=== PATIENT | male | born 1940 | race Caucasian/White ===

== ENCOUNTER 2019-01-08 12:50 | Inpatient (IN) | payer MEDICARE, MEDICAID ==
[~2019-01-08] VITALS: Ht 182.9 cm; Wt 79.4 kg
[2019-01-08 13:48] LABS: BASOPHILS % (AUTO) 0.2 % (0-1); EOSINOPHILS % (AUTO) 0.7 % (0-6); HEMATOCRIT 42.1 % (42.0-52.0); HEMOGLOBIN 13.7 g/dl (14.0-17.9); LYMPHOCYTES # (AUTO) 0.7 X10'3 (1.1-4.8); LYMPHOCYTES % (AUTO) 15.3 % (21-51); MEAN CORPUSCULAR HEMOGLOBIN 27.4 PG (27.0-31.0); MEAN CORPUSCULAR HGB CONC 32.5 g/dL (33.0-36.5); MEAN PLATELET VOLUME 9.5 FL (7.4-10.4); MONOCYTES # (AUTO) 0.3 X10'3 (0-0.9); MONOCYTES % (AUTO) 5.4 % (2-12); NEUTROPHILS # (AUTO) 3.8 X10'3 (1.8-7.7); NEUTROPHILS % (AUTO) 78.4 % (42-75); PLATELET COUNT 88 X10'3 (140-440); RED BLOOD COUNT 5.01 X10'6 (4.70-6.10); RED CELL DISTRIBUTION WIDTH 15.7 % (11.5-14.5); WHITE BLOOD COUNT 4.8 X10'3 (4.5-11.0)
[2019-01-08 13:58] LABS: ALANINE AMINOTRANSFERASE 53 U/L (12-78); ALBUMIN 3.3 G/DL (3.4-5.0); ALBUMIN/GLOBULIN RATIO 0.9 (1.1-1.5); ALKALINE PHOSPHATASE 79 IU/L (46-116); ANION GAP 5 (8-16); ASPARTATE AMINO TRANSFERASE 66 U/L (10-37); BILIRUBIN,TOTAL 0.6 MG/DL (0.1-1.0); BLOOD UREA NITROGEN 19 MG/DL (7-18); BUN/CREATININE RATIO 14.7 (5.4-32.0); CALCIUM 8.5 MG/DL (8.5-10.1); CHLORIDE 108 MMOL/L (99-107); CREATININE 1.29 MG/DL (0.60-1.10); GLUCOSE 103 MG/DL (70-104); POTASSIUM 5.2 MMOL/L (3.5-5.1); SODIUM 142 MMOL/L (135-145); TOTAL CARBON DIOXIDE 29.3 MMOL/L (24-32); TOTAL PROTEIN 7.1 G/DL (6.4-8.2); eGFR 54 ML/MIN
[2019-01-08 14:15] LABS: PARTIAL THROMBOPLASTIN TIME 115 SECONDS (22-32)
--- NOTE | 2019-01-08 14:15 | NUR ---
PTT RESULT IS 115. HEPARIN DRIP TURNED OFF PER PROTOCOL AND IS TO REMAIN OFF FOR [address] NAIR AND JIMY AWARE OF THIS.
[2019-01-08] MEDS ORDERED: ondansetron/PF 4mg/2ml inj IV PRN (14:20)
[2019-01-08] MEDS ORDERED: morphine 2 MG/ML inj. syringe IV PRN ×2 (14:20)
[2019-01-08] MEDS ORDERED: magnesium hydroxide 30ml (MOM) UD suspension PO PRN ×2 (14:20→18:50)
[2019-01-08] MEDS ORDERED: nitroGLYCERIN 0.4mg SUBLingual tab SL PRN (14:20)
[2019-01-08] MEDS ORDERED: heparin 10,000 units/1 ML INJ IV PRN (14:20)
[2019-01-08] MEDS ORDERED: acetaminophen 325mg tablet PO PRN ×2 (14:20→18:50)
[2019-01-08] MEDS ORDERED: mag hydrox/Alum hydrox/simeth 30ml oral suspension PO PRN (14:20)
[2019-01-08] MEDS ORDERED: heparin 10,000 units/1 ML INJ IV ONE ×2 (14:20→14:30)
[2019-01-08] MEDS ORDERED: FLO0.4C PO (15:07)
[2019-01-08] MEDS ORDERED: ALBU8.5H8 INH (15:07)
[2019-01-08] MEDS ORDERED: metoprolol tartrate 50mg tablet PO STA (15:26)
[2019-01-08 15:45] VITALS: BP 183/92
--- NOTE | 2019-01-08 15:58 | NUR ---
Pt. arrived from ER. Pt. does not have chest pain at the moment. Pt's skin clear. Pt. does not have any complaints at this time. Pt. placed on engine monitor and vitals take. Will prep for heart cath.
--- NOTE | 2019-01-08 16:04 | NUR ---
PAGER ID: [phone] MESSAGE: [phone]-Son. FYI. Trop up to 18.. Thank You Denton WOLFF [phone]
[2019-01-08] MEDS: heparin 25,000 UNIT/250ml bag 250 ML IV SCH (16:23)
[2019-01-08] MEDS: furosemide 20 MG/2 ML vial IV SCH ×2 (16:25→20:50)
[2019-01-08] MEDS ORDERED: iohexol 350 MG/ML 50ML vial IV ONE (16:31)
[2019-01-08] MEDS ORDERED: heparin 1,000unit/ml 10ml vial 10 ML ONE (16:31)
[2019-01-08] MEDS ORDERED: fentaNYL/PF 50MCG/1 ML 2ML syringe ONE (16:31)
[2019-01-08] MEDS ORDERED: nitroGLYCERIN-Tridil 50MG/D5W 250 ML IV ONE (16:31)
[2019-01-08] MEDS ORDERED: iohexol 350 MG/1 ML 200ml bottle ONE (16:31)
[2019-01-08] MEDS ORDERED: LIDOcaine 1% (10mg/ml)w/preservative injection 20ml MDV ONE (16:31)
[2019-01-08] MEDS ORDERED: midazolam 2 mg/2 ml injection ONE (16:31)
--- NOTE | 2019-01-08 16:45 | NUR ---
Pt. headed to the cath lab radiological technologist
[2019-01-08] MEDS ORDERED: tirofiban 12.5mg in NS 250mL 250 ML IV ONE (18:03)
--- NOTE | 2019-01-08 18:12 | NUR ---
Problems reprioritized. Patient report given, questions answered & plan of care reviewed with Gregory WOLFF and Afia WOLFF.
--- NOTE | 2019-01-08 18:40 | NUR ---
received report from Denton in the asset availability leader patient is in bed 2008 cicu no questions or concerns after sbar from Denton
[2019-01-08] MEDS ORDERED: clopidogrel 300mg tablet PO ONE (18:50)
[2019-01-08] MEDS ORDERED: normal saline 1000ml 1,000 ML IV ONE (18:50)
[2019-01-08] MEDS ORDERED: aspirin 81mg tab.chew PO ONE (18:50)
[2019-01-08 19:00] VITALS: BP 240/124
--- NOTE | 2019-01-08 19:12 | NUR ---
called and left message for dr. driver at phone # [phone] regarding patients b/p
--- NOTE | 2019-01-08 19:14 | NUR ---
called labeling associate to try and reach dr. dow as well
[2019-01-08] MEDS: tirofiban 12.5mg in NS 250mL 250 ML IV SCH (19:26)
[2019-01-08] MEDS ORDERED: nitroGLYCERIN-Tridil 50MG/D5W 250 ML IV PRN (19:28)
[2019-01-08] MEDS: hydrALAZINE 20mg/ml inj. IV PRN (19:58)
[2019-01-08 20:00] VITALS: BP 227/113
[2019-01-08] MEDS ORDERED: metoprolol tartrate 12.5mg (1/2 tablet) PO SCH (20:00)
--- NOTE | 2019-01-08 20:30 | NUR ---
unable to get a piv for nitro will attempt again
[2019-01-08] MEDS: docusate sod 100mg capsule PO SCH (20:50)
[2019-01-08 21:00] VITALS: BP 182/90
--- NOTE | 2019-01-08 21:37 | NUR ---
unable to get iv on 3 rd attempt have uriel CN with us to attempt for nitro to decrease b/p
[2019-01-08 22:00] VITALS: BP 173/91
[2019-01-08 23:00] VITALS: BP 167/88
--- NOTE | 2019-01-08 23:00 | NUR ---
patient in bed eyes closed supine right leg straight rr even un labored no observable s/s of acute stress at this time
[2019-01-09] VITALS (22 sets, daily range): BP systolic 97–157; BP diastolic 58–88
--- NOTE | 2019-01-09 00:53 | NUR ---
patient re positioned denies pain, rr even un labored no observable s/s of acute stress at this time
[2019-01-09] MEDS: hydrALAZINE 20mg/ml inj. IV PRN (02:09)
--- NOTE | 2019-01-09 03:30 | NUR ---
Patient refused 0200 vitals. We were able to obtain vitals at 0330 after patient got back into bed from using the commode. Patient had 2 BM in the span of approx 45 minutes. He was also nauseated, diaphoretic and unsteady on his feet. It took 2 to 3 staff members to get him back in bed. He now reports that he is feeling better and wishes to sleep. He appears to be back at his baseline. He has been disoriented and confused during the last 5 hours of this shift. He is able to be reoriented during those times but it takes a few minutes for that to happen. His body temperature at this time is cool and he complains of being cold. Took a few times of repeating his temp to get a temp of 96.1 axillary. Began to perform warming measures and will repeat patient temperature within 1 hour. Will continue to monitor this patient for duration of shift.
--- NOTE | 2019-01-09 04:06 | NUR ---
patient in bed eyes closed rr even un labored no observable s/s of acute stress at this time
[2019-01-09 04:39] LABS: BASOPHILS % (AUTO) 0.2 % (0-1); EOSINOPHILS % (AUTO) 0 % (0-6); HEMOGLOBIN 13.7 g/dl (14.0-17.9); LYMPHOCYTES # (AUTO) 0.6 X10'3 (1.1-4.8); LYMPHOCYTES % (AUTO) 6.4 % (21-51); MEAN CORPUSCULAR HEMOGLOBIN 27.4 PG (27.0-31.0); MEAN CORPUSCULAR HGB CONC 32.7 g/dL (33.0-36.5); MEAN CORPUSCULAR VOLUME 83.8 FL (78-98); MONOCYTES # (AUTO) 0.4 X10'3 (0-0.9); MONOCYTES % (AUTO) 4.4 % (2-12); NEUTROPHILS # (AUTO) 7.6 X10'3 (1.8-7.7); PLATELET COUNT 122 X10'3 (140-440); RED BLOOD COUNT 5.01 X10'6 (4.70-6.10); RED CELL DISTRIBUTION WIDTH 15.7 % (11.5-14.5); WHITE BLOOD COUNT 8.6 X10'3 (4.5-11.0)
[2019-01-09] MEDS: heparin 25,000 UNIT/250ml bag 250 ML IV SCH (04:55)
[2019-01-09 04:56] LABS: ALANINE AMINOTRANSFERASE 54 U/L (12-78); ALBUMIN 3.2 G/DL (3.4-5.0); ALBUMIN/GLOBULIN RATIO 0.9 (1.1-1.5); ALKALINE PHOSPHATASE 81 IU/L (46-116); ANION GAP 10 (8-16); ASPARTATE AMINO TRANSFERASE 55 U/L (10-37); BILIRUBIN,TOTAL 0.9 MG/DL (0.1-1.0); BLOOD UREA NITROGEN 26 MG/DL (7-18); BUN/CREATININE RATIO 20.8 (5.4-32.0); CALCIUM 8.2 MG/DL (8.5-10.1); CHLORIDE 104 MMOL/L (99-107); CHOL/HDL RATIO 2.4 (0.00-4.99); CHOLESTEROL 109 MG/DL (0-200); CREATININE 1.25 MG/DL (0.60-1.10); GLUCOSE 158 MG/DL (70-104); HDL CHOLESTEROL 45 MG/DL (35-60); LDL CHOLESTEROL 58 MG/DL (50-100); POTASSIUM 4.5 MMOL/L (3.5-5.1); SODIUM 140 MMOL/L (135-145); TOTAL CARBON DIOXIDE 25.9 MMOL/L (24-32); TOTAL PROTEIN 6.9 G/DL (6.4-8.2); TRIGLYCERIDES 38 MG/DL (20-135); eGFR 56 ML/MIN
[2019-01-09 04:58] LABS: TROPONIN I 7.45 NG/ML (0.0-0.05)
--- NOTE | 2019-01-09 05:12 | NUR ---
patient in bed eyes closed rr even un labored no observable s/s of acute stress at this time
--- NOTE | 2019-01-09 06:16 | NUR ---
Patient in room CICU 2008. I have received report from Chencho and had the opportunity to ask questions and assume patient care.
--- NOTE | 2019-01-09 06:23 | NUR ---
SBAR to Kristie WOLFF no questions or concerns after SBAR
[2019-01-09] MEDS ORDERED: metoprolol succinate 25mg (24-HOUR) SR. Tablet PO SCH (08:00)
[2019-01-09] MEDS ORDERED: aspirin 81mg tablet.DR PO SCH (08:00)
[2019-01-09] MEDS ORDERED: aspirin 325mg tablet PO SCH (08:30)
[2019-01-09] MEDS: furosemide 20 MG/2 ML vial IV SCH ×2 (08:52→20:27)
[2019-01-09] MEDS: atorvastatin 20mg tablet PO SCH (08:52)
[2019-01-09] MEDS: docusate sod 100mg capsule PO SCH ×2 (08:52→20:28)
[2019-01-09] MEDS: clopidogrel 75mg tablet PO SCH (08:53)
[2019-01-09] MEDS: metoprolol succinate 25mg (24-HOUR) SR. Tablet PO SCH ×2 (08:53→20:28)
[2019-01-09] MEDS ORDERED: albuterol 2.5 MG/3 ML nebule NEB PRN (11:25)
--- NOTE | 2019-01-09 12:08 | NUR ---
0700- heparin off 0730ACT 145 0930- Art sheath site oozing, no hematoma present, tolerating laying flat. Pulses located with doppler, sheath pulled, bleeding controlled at site 0935 hematoma forming at right groin, reinforcements at bedside to place added manual pressure. Still no bleeding from insertion site, Pulses present using doppler 0950 - final measurement of hematoma is 11cmx 11cm, Call placed to Dr Fowler notifying him of hematoma, no new orders received, aggrastat continues to infuse at 6.75 hr. 1000Fen stop placed, no bleeding present.
--- NOTE | 2019-01-09 14:27 | NUR ---
1430- hematoma remains unchanged, pulses in feet palpable. Call to Dr Fowler, d/c destiny when current bag infused.
--- NOTE | 2019-01-09 15:05 | NUR ---
Consult received for cardiac diet education. Patient has normal lipid labs. Noted patient admission with uncontrolled high blood pressure, per MD note medications will be adjusted. Patient on heart healthy diet. Will provide diet education prior to discharge. Addendum: 01/09/19 at [address] Amended: Links added.
--- NOTE | 2019-01-09 16:46 | NUR ---
1644- Dr Fowler rounded- He repositioned femostop to below insertion site directly over hematoma, keep femostop in place for 2 more hours, give 25mg metoprolol now and then order for BID.
[2019-01-09] MEDS ORDERED: metoprolol tartrate 25mg tablet PO STA (16:48)
--- NOTE | 2019-01-09 18:26 | NUR ---
Problems reprioritized. Patient report given, questions answered & plan of care reviewed with Mariluz.
--- NOTE | 2019-01-09 18:40 | NUR ---
RECEIVED PATIENT. PATIENT IS GETTING PREPARED TO TRANSFER TO THE [facility] ROOM 308. PATIENT IS NEUROLOGICALLY INTACT. NO NUMBNESS OR TINGLING. MOVES X 4 EQUALLY, ORIENTED X4. VERY PLEASANT. PATIENT IS ON ROOM AIR, NO RESPIRATORY DISTRESS. LUNGS ARE CLEAR. AFIB 90-105. NO ECTOPY NOTED. VSS. FEM STOP TO RIGHT GROIN. PER REPORT - THIS MAY BE REMOVED AT 1900 ALONG WITH D/C OF AGGRASTAT GTT WHEN BAG WAS . RIGHT GROIN WITH A TEGADERM AND 2X2 GAUZE WITH LITTLE LARGER THAN DIME SIZED BLOODY SHADOWING. SOFT HEMATOMA TO SITE BELOW THE FEMSTOP ON THE UPPER RIGHT INNER THIGH. VIEWED WITH PREVIOUS RN Mima ZACARIAS - WHO STATED THIS WAS UNCHANGED FROM WHEN SHE RECEIVED THE PATIENT. NO PAIN AND REMAINS SOFT. PALPABLE PULSE TO B/L DP'S. PATIENT HAD ONE SMALL BITE OF THE MEATLOAF ON THE DINNER TRAY. PATIENT STATES HE IS NOT HUMGRY. BLOOD GLUCOSE TAKE. RESULTS 125. PATIENT IS NOT ON INSULIN PROTOCOL. URINAL AT BEDSIDE. NO URINE AT THIS TIME BUT THE LITTLE RESIDUE URINE IN THE URINAL IS DARK TEA COLOERED. TURNED FOR BACK CHECK. BACK INTACT. PIV TO B/L ARMS BOTH ARE SL. AGGRASTAT BAG EMPTY SO D/C'D & DISCONNECTED PER ORDER. RIGHT GROIN MONITORED FREQUENTLY BEFORE AND AFTER TURN. NO CHANGES. ALL PROCEDURES EXPLAINED.
--- NOTE | 2019-01-09 19:26 | NUR ---
Received report from Homero in the CICU. Will await arrival of patient to the ACCE unit.
--- NOTE | 2019-01-09 19:40 | NUR ---
Patient arrived to the ACCE unit by way of hospital bed. He is alert and oriented. There are 2 patient belonging bags brought on the bed with the patient. Patient is assessed and I assumed care of this patient. Noted that the patient is in Atrial Fibrillation. Will continue to monitor patient for duration of shift.
--- NOTE | 2019-01-09 20:00 | NUR ---
FEMSTOP REMOVED FROM RIGHT GROIN AT 1900. POSITIVE HEMOSTASIS. SITE REMAINS SOFT, INTACT. NO CHANGES TO THE 2X2 AND TEGADERM. NO CHANGES TO THE HEMATOMA SITE. MONITORED FREQUENTLY OVER COURSE OF THIS HOUR. VSS, PULSES PALPABLE. NO C/O PAIN/DISCOMFORT FROM PATIENT. REPORT WAS GIVEN TO LATOYA ON [facility]. PATIENT TO TRANSFER TO ROOM 308. RIGHT GROIN SITE REVIEWED WITH DEANN WOLFF WHO WILL TRANSFER PATIENT UP TO THE [facility] UNIT SO SHE MAY HAVE BASELINE FOR HANDING THE PATIENT OFF TO MARIELLA KLEIN. ALL PROCEDURES EXPLAINED TO PATIENT. VSS REMAIN STABLE UPON EXITING UNIT TO TRANSFER. ALL BELONGING WITH PATIENT
--- NOTE | 2019-01-09 20:30 | NUR ---
During the med pass this patient reported to me that he was feeling dizzy and sweaty. I called in the charge nurse MARIELLA Kasper and we remained with the patient until he reported that these feelings passed. I received in report from the CICU nurse MARIELLA Valentin that the patient had had an accucheck just prior to coming to the floor which was 124. The patient had been stating that he had not eaten much, which I also received in report. I gave the patient some crackers which he did eat some of them. I will continue to monitor this patient for duration of this shift.
--- NOTE | 2019-01-09 22:14 | NUR ---
Patient had a syncopal episode when attempting to get out of bed. Aid was going to take the patient to the restroom and when he went to stand up he went back to the bed and began to fall over backwards. We were able to hold the patient up and then assist him back into the bed. He described becoming dizzy and not with us for a moment. It took about 5 minutes before he was able to tell me where he was. I will continue to monitor patient for duration of shift.
[2019-01-10] VITALS (7 sets, daily range): BP systolic 93–128; BP diastolic 53–79
--- NOTE | 2019-01-10 04:30 | NUR ---
We have found this patient sitting on the side of his bed. He is diaphoretic and not making sense in his speech. We took his blood glucose which came back at 145. Patient has been up and down several times during the night. He has made statement like, "the dogs woke me up." We have reoriented him several times. He has also been somewhat combative with staff and even refusing to use nasal cannula for oxygen. At times his oxygen level has been as low as 90% and when we put oxygen on I put this oxygen on 4 Liters at first and then was able to titrate down to 3 L. He wore this for some time and SAO2 was 95% or greater. I will pass this information on to oncoming shift.
[2019-01-10 04:35] LABS: BASOPHILS # (AUTO) 0.1 X10'3 (0-0.2); BASOPHILS % (AUTO) 0.5 % (0-1); EOSINOPHILS % (AUTO) 0.1 % (0-6); HEMATOCRIT 34.1 % (42.0-52.0); HEMOGLOBIN 11.3 g/dl (14.0-17.9); LYMPHOCYTES % (AUTO) 15.1 % (21-51); MEAN CORPUSCULAR HEMOGLOBIN 27.3 PG (27.0-31.0); MEAN CORPUSCULAR HGB CONC 33.1 g/dL (33.0-36.5); MEAN CORPUSCULAR VOLUME 82.4 FL (78-98); MEAN PLATELET VOLUME 9.3 FL (7.4-10.4); MONOCYTES # (AUTO) 0.9 X10'3 (0-0.9); MONOCYTES % (AUTO) 6.6 % (2-12); NEUTROPHILS # (AUTO) 10.3 X10'3 (1.8-7.7); NEUTROPHILS % (AUTO) 77.7 % (42-75); PLATELET COUNT 162 X10'3 (140-440); RED BLOOD COUNT 4.14 X10'6 (4.70-6.10); RED CELL DISTRIBUTION WIDTH 15.7 % (11.5-14.5); WHITE BLOOD COUNT 13.2 X10'3 (4.5-11.0)
[2019-01-10 04:49] LABS: ALBUMIN 2.9 G/DL (3.4-5.0); ANION GAP 11 (8-16); BLOOD UREA NITROGEN 87 MG/DL (7-18); BUN/CREATININE RATIO 41.8 (5.4-32.0); CALCIUM 8.5 MG/DL (8.5-10.1); CHLORIDE 106 MMOL/L (99-107); CREATININE 2.08 MG/DL (0.60-1.10); GLUCOSE 161 MG/DL (70-104); POTASSIUM 4.3 MMOL/L (3.5-5.1); SODIUM 142 MMOL/L (135-145); TOTAL CARBON DIOXIDE 25.1 MMOL/L (24-32); eGFR 31 ML/MIN
--- NOTE | 2019-01-10 06:10 | NUR ---
Patient in room MED 308. I have received report from KASSI WOLFF and had the opportunity to ask questions and assume patient care.
--- NOTE | 2019-01-10 06:32 | NUR ---
Problems reprioritized. Patient report given, questions answered & plan of care reviewed with MARIELLA Donohue.
[2019-01-10] MEDS: docusate sod 100mg capsule PO SCH (08:00)
[2019-01-10] MEDS ORDERED: tamsulosin 0.4mg capsule PO SCH (08:00)
[2019-01-10] MEDS: tirofiban 12.5mg in NS 250mL 250 ML IV SCH (08:03)
[2019-01-10] MEDS: clopidogrel 75mg tablet PO SCH (09:07)
[2019-01-10] MEDS: atorvastatin 20mg tablet PO SCH (09:07)
[2019-01-10] MEDS: metoprolol succinate 25mg (24-HOUR) SR. Tablet PO SCH ×2 (09:07→20:13)
[2019-01-10] MEDS: furosemide 20 MG/2 ML vial IV SCH (09:09)
--- NOTE | 2019-01-10 10:40 | NUR ---
Student nurse came to make this nurse aware of patient having an a large emesis, upon arrival noted back coffee groud emesis with a spot of bright red blood. Will clean patient up and make MD aware ciarra. Patient did state he's had occasional sharp abdominal pain. When asked about his stool, he stated my stool has been black.
--- NOTE | 2019-01-10 11:06 | NUR ---
Paged hospitalist, "Jayde [phone]- Please call [facility] re: Fidel Cline [phone] on ACCE" Awaiting callback.
[2019-01-10 11:11] LABS: GASTRIC OCCULT BLOOD NEGATIVE (Neg)
--- NOTE | 2019-01-10 11:24 | NUR ---
Paged hospitalist, "Jayde [phone]- Please call [facility] re: Fidel Cline 408 on ACCE"
--- NOTE | 2019-01-10 11:35 | NUR ---
Dr. Rossi called back, received orders for labs and occult blood stool.
[2019-01-10 12:48] LABS: OCCULT BLOOD STOOL POSITIVE (Neg)
--- NOTE | 2019-01-10 13:33 | NUR ---
PAGER ID: [phone] MESSAGE: [phone]: BAN barrett..GUAIC OCCULT STOOL +; DO YOU WANT PATIENT NPO OR CLEARS FOR DIET? NURSE DIMAS EXT 7575
[2019-01-10 13:35] LABS: BASOPHILS # (AUTO) 0.1 X10'3 (0-0.2); BASOPHILS % (AUTO) 0.6 % (0-1); EOSINOPHILS % (AUTO) 0 % (0-6); HEMATOCRIT 34.9 % (42.0-52.0); HEMOGLOBIN 11.6 g/dl (14.0-17.9); LYMPHOCYTES # (AUTO) 1.4 X10'3 (1.1-4.8); LYMPHOCYTES % (AUTO) 11.3 % (21-51); MEAN CORPUSCULAR HEMOGLOBIN 27.8 PG (27.0-31.0); MEAN CORPUSCULAR HGB CONC 33.3 g/dL (33.0-36.5); MEAN CORPUSCULAR VOLUME 83.6 FL (78-98); MEAN PLATELET VOLUME 9.2 FL (7.4-10.4); MONOCYTES # (AUTO) 0.8 X10'3 (0-0.9); MONOCYTES % (AUTO) 6.5 % (2-12); NEUTROPHILS # (AUTO) 9.9 X10'3 (1.8-7.7); NEUTROPHILS % (AUTO) 81.6 % (42-75); PLATELET COUNT 141 X10'3 (140-440); RED BLOOD COUNT 4.18 X10'6 (4.70-6.10); RED CELL DISTRIBUTION WIDTH 16.3 % (11.5-14.5); WHITE BLOOD COUNT 12.1 X10'3 (4.5-11.0)
[2019-01-10 13:40] LABS: ALBUMIN 3.3 G/DL (3.4-5.0); ANION GAP 12 (8-16); BLOOD UREA NITROGEN 105 MG/DL (7-18); BUN/CREATININE RATIO 47.7 (5.4-32.0); CHLORIDE 105 MMOL/L (99-107); GLUCOSE 139 MG/DL (70-104); POTASSIUM 4.4 MMOL/L (3.5-5.1); SODIUM 143 MMOL/L (135-145); TOTAL CARBON DIOXIDE 25.6 MMOL/L (24-32); eGFR 29 ML/MIN
--- NOTE | 2019-01-10 14:35 | NUR ---
F/u: Pt now placed on clear liquids r/t new onset GIB; monitoring H&H and possibly pending GI consult per RN. Pt unable to wake from sleep suring RD visit; written heart healthy diet ed w/ RD contact information left at bedside. Addendum: 01/10/19 at [address] Amended: Links added.
[2019-01-10] MEDS: pantoprazole 40MG/NS 100ML BAG 100 ML IV SCH ×3 (15:26→21:57)
[2019-01-10 17:31] LABS: HEMATOCRIT 31.7 % (42.0-52.0); HEMOGLOBIN 10.7 g/dl (14.0-17.9); MEAN CORPUSCULAR HEMOGLOBIN 27.9 PG (27.0-31.0); MEAN CORPUSCULAR HGB CONC 33.7 g/dL (33.0-36.5); MEAN CORPUSCULAR VOLUME 82.7 FL (78-98); MEAN PLATELET VOLUME 9.1 FL (7.4-10.4); PLATELET COUNT 114 X10'3 (140-440); RED BLOOD COUNT 3.83 X10'6 (4.70-6.10); RED CELL DISTRIBUTION WIDTH 15.8 % (11.5-14.5); WHITE BLOOD COUNT 10.6 X10'3 (4.5-11.0)
--- NOTE | 2019-01-10 17:46 | NUR ---
PAGER ID: [phone] MESSAGE: [phone]: BAN - I'm sure you saw. h/h is down to . ty nurse magi [phone]
[2019-01-10] MEDS ORDERED: docusate sod 100mg capsule PO PRN (18:05)
--- NOTE | 2019-01-10 18:05 | NUR ---
Patient in room MED 308. I have received report from MARIELLA Donohue and had the opportunity to ask questions and assume patient care.
--- NOTE | 2019-01-10 18:05 | NUR ---
Problems reprioritized. Patient report given, questions answered & plan of care reviewed with Luli WOLFF.
--- NOTE | 2019-01-10 18:15 | NUR ---
Patient in room MED 308. I have received report from MARIELLA Donohue and had the opportunity to ask questions and assume patient care. Addendum: 01/10/19 at 2153 by Alisha Gunn RN Thiago WOLFF. Received report from MARIELLA Garrido
[2019-01-10] MEDS: normal saline 1000ml 1,000 ML IV SCH (18:43)
--- NOTE | 2019-01-10 21:45 | NUR ---
I was called into patient room to assist OrienteerAlisha RN and Rhiannon Pizano to help get patient back to bed. Patient seemed to be having a syncopal episode. He was not able to remain on his feet. We pulled a chair under him and then began to perform neuro check. Patient quickly began to come back around. He was asked if he knew where he was and he did answer that he was in the hospital. We waited with patient until he was recovered and back to his baseline. We put patient back in bed. After reflecting on my time caring for this patient on the last shift and how he was I spoke with the charge nurse and asked if we could move him closer to the nurses station. We then did move the patient.
[2019-01-10 23:21] LABS: HEMATOCRIT 28.3 % (42.0-52.0); HEMOGLOBIN 9.4 g/dl (14.0-17.9); MEAN CORPUSCULAR HEMOGLOBIN 27.6 PG (27.0-31.0); MEAN CORPUSCULAR HGB CONC 33.3 g/dL (33.0-36.5); MEAN CORPUSCULAR VOLUME 82.7 FL (78-98); MEAN PLATELET VOLUME 8.9 FL (7.4-10.4); PLATELET COUNT 108 X10'3 (140-440); RED BLOOD COUNT 3.42 X10'6 (4.70-6.10); RED CELL DISTRIBUTION WIDTH 15.7 % (11.5-14.5); WHITE BLOOD COUNT 8.2 X10'3 (4.5-11.0)
[2019-01-11] VITALS (21 sets, daily range): BP systolic 99–144; BP diastolic 14–84
[2019-01-11] MEDS: pantoprazole 40MG/NS 100ML BAG 100 ML IV SCH ×2 (02:53→08:27)
--- NOTE | 2019-01-11 04:52 | NUR ---
Orienteer documentation: I have reviewed and agree with interventions, assessments performed and documented by MARIELLA Brito. Student Medication Administration: For this medication-pass time frame, medication were reviewed, dispensed, administered and documented per hospital policy by MARIELLA Brito.
[2019-01-11 05:46] LABS: BASOPHILS % (AUTO) 0.3 % (0-1); EOSINOPHILS % (AUTO) 0.4 % (0-6); HEMATOCRIT 27.1 % (42.0-52.0); HEMOGLOBIN 9.2 g/dl (14.0-17.9); LYMPHOCYTES # (AUTO) 0.9 X10'3 (1.1-4.8); LYMPHOCYTES % (AUTO) 11.4 % (21-51); MEAN CORPUSCULAR HEMOGLOBIN 27.7 PG (27.0-31.0); MEAN CORPUSCULAR VOLUME 81.6 FL (78-98); MEAN PLATELET VOLUME 8.8 FL (7.4-10.4); MONOCYTES # (AUTO) 0.5 X10'3 (0-0.9); MONOCYTES % (AUTO) 6.2 % (2-12); NEUTROPHILS # (AUTO) 6.4 X10'3 (1.8-7.7); NEUTROPHILS % (AUTO) 81.7 % (42-75); PLATELET COUNT 104 X10'3 (140-440); RED BLOOD COUNT 3.32 X10'6 (4.70-6.10); RED CELL DISTRIBUTION WIDTH 15.9 % (11.5-14.5); WHITE BLOOD COUNT 7.8 X10'3 (4.5-11.0)
[2019-01-11 06:03] LABS: ALBUMIN 2.8 G/DL (3.4-5.0); ANION GAP 9 (8-16); BLOOD UREA NITROGEN 97 MG/DL (7-18); BUN/CREATININE RATIO 50.5 (5.4-32.0); CALCIUM 8.4 MG/DL (8.5-10.1); CHLORIDE 109 MMOL/L (99-107); CREATININE 1.92 MG/DL (0.60-1.10); GLUCOSE 132 MG/DL (70-104); POTASSIUM 3.8 MMOL/L (3.5-5.1); SODIUM 145 MMOL/L (135-145); TOTAL CARBON DIOXIDE 27.5 MMOL/L (24-32); eGFR 34 ML/MIN
--- NOTE | 2019-01-11 06:34 | NUR ---
Problems reprioritized. Patient report given, questions answered & plan of care reviewed with MARIELLA Garrido Orienteer and MARIELLA Lieberman.
[2019-01-11] MEDS: furosemide 20 MG/2 ML vial IV SCH (08:28)
[2019-01-11] MEDS: metoprolol succinate 25mg (24-HOUR) SR. Tablet PO SCH ×2 (08:29→20:24)
[2019-01-11] MEDS: atorvastatin 20mg tablet PO SCH (08:29)
[2019-01-11] MEDS ORDERED: fentaNYL/PF 50MCG/1 ML 2ML syringe ONE (12:26)
[2019-01-11] MEDS ORDERED: LIDOcaine Viscous 15ml cup ONE (12:27)
[2019-01-11] MEDS ORDERED: MIDAZolam 5mg/5ml vial ONE (12:27)
--- NOTE | 2019-01-11 15:43 | NUR ---
PAGER ID: [phone] MESSAGE: [phone]: BAN Lonny barrett x2 AVM cauterized during EGD. pt started on full liquid diet, to advance as tolerated. will transfuse blood shortly or this evening. ty nurse Nicole [phone]
[2019-01-11] MEDS: normal saline 1000ml 1,000 ML IV SCH (16:06)
--- NOTE | 2019-01-11 18:33 | NUR ---
Patient in room MED 312. I have received report from Oneida WOLFF and had the opportunity to ask questions and assume patient care.
--- NOTE | 2019-01-11 18:54 | NUR ---
Patient in room MED 312. I have received report from Ewa and had the opportunity to ask questions and assume patient care.
[2019-01-11] MEDS: tamsulosin 0.4mg capsule PO SCH (20:24)
[2019-01-12] VITALS (8 sets, daily range): BP systolic 99–145; BP diastolic 41–76
--- NOTE | 2019-01-12 00:23 | NUR ---
0023 COMPLETED TRANSFUSION ONE UNIT PRBC'S, PATIENT HAD NO ISSUES OR NOTED ADVERSE REACTIONS.
--- NOTE | 2019-01-12 04:21 | NUR ---
Reviewed and agreed with MARIELLA Oreilly's charting
--- NOTE | 2019-01-12 06:08 | NUR ---
Problems reprioritized. Patient report given, questions answered & plan of care reviewed with Neida WOLFF.
[2019-01-12 06:44] LABS: BASOPHILS % (AUTO) 0.3 % (0-1); EOSINOPHILS # (AUTO) 0.1 X10'3 (0-0.9); EOSINOPHILS % (AUTO) 1.8 % (0-6); HEMATOCRIT 26.2 % (42.0-52.0); HEMOGLOBIN 8.9 g/dl (14.0-17.9); LYMPHOCYTES # (AUTO) 0.5 X10'3 (1.1-4.8); LYMPHOCYTES % (AUTO) 13.1 % (21-51); MEAN CORPUSCULAR HEMOGLOBIN 28.6 PG (27.0-31.0); MEAN CORPUSCULAR HGB CONC 34.1 g/dL (33.0-36.5); MEAN CORPUSCULAR VOLUME 83.8 FL (78-98); MEAN PLATELET VOLUME 9.2 FL (7.4-10.4); MONOCYTES # (AUTO) 0.3 X10'3 (0-0.9); MONOCYTES % (AUTO) 8.3 % (2-12); NEUTROPHILS # (AUTO) 2.9 X10'3 (1.8-7.7); NEUTROPHILS % (AUTO) 76.5 % (42-75); PLATELET COUNT 80 X10'3 (140-440); RED BLOOD COUNT 3.13 X10'6 (4.70-6.10); WHITE BLOOD COUNT 3.8 X10'3 (4.5-11.0)
[2019-01-12 06:48] LABS: ALBUMIN 2.7 G/DL (3.4-5.0); ANION GAP 9 (8-16); BLOOD UREA NITROGEN 59 MG/DL (7-18); BUN/CREATININE RATIO 36.4 (5.4-32.0); CALCIUM 8.1 MG/DL (8.5-10.1); CHLORIDE 112 MMOL/L (99-107); CREATININE 1.62 MG/DL (0.60-1.10); GLUCOSE 124 MG/DL (70-104); POTASSIUM 3.5 MMOL/L (3.5-5.1); SODIUM 149 MMOL/L (135-145); TOTAL CARBON DIOXIDE 27.6 MMOL/L (24-32); eGFR 41 ML/MIN
[2019-01-12] MEDS ORDERED: pantoprazole 40mg Tablet.DR PO SCH (07:30)
[2019-01-12] MEDS: furosemide 20 MG/2 ML vial IV SCH (08:29)
[2019-01-12] MEDS: atorvastatin 20mg tablet PO SCH (08:30)
[2019-01-12] MEDS: metoprolol succinate 25mg (24-HOUR) SR. Tablet PO SCH ×2 (08:30→20:25)
[2019-01-12 08:42] LABS: MAGNESIUM 1.9 MG/DL (1.5-2.4)
--- NOTE | 2019-01-12 18:19 | NUR ---
report given to veronika velez. reviewed plan of care and medications
[2019-01-12] MEDS: tamsulosin 0.4mg capsule PO SCH (20:25)
[2019-01-12] MEDS: pantoprazole 40mg Tablet.DR PO SCH (20:25)
--- NOTE | 2019-01-13 04:42 | NUR ---
Orientee documentation: I have reviewed and agree with all interventions, assessments performed and documented by Mp WOLFF
[2019-01-13 04:52] LABS: BASOPHILS % (AUTO) 0.2 % (0-1); EOSINOPHILS # (AUTO) 0.1 X10'3 (0-0.9); EOSINOPHILS % (AUTO) 1.8 % (0-6); HEMATOCRIT 28.2 % (42.0-52.0); HEMOGLOBIN 9.5 g/dl (14.0-17.9); LYMPHOCYTES # (AUTO) 0.8 X10'3 (1.1-4.8); LYMPHOCYTES % (AUTO) 14.6 % (21-51); MEAN CORPUSCULAR HEMOGLOBIN 28.7 PG (27.0-31.0); MEAN CORPUSCULAR HGB CONC 33.7 g/dL (33.0-36.5); MEAN PLATELET VOLUME 8.8 FL (7.4-10.4); MONOCYTES # (AUTO) 0.3 X10'3 (0-0.9); MONOCYTES % (AUTO) 6.1 % (2-12); NEUTROPHILS # (AUTO) 4.1 X10'3 (1.8-7.7); NEUTROPHILS % (AUTO) 77.3 % (42-75); PLATELET COUNT 92 X10'3 (140-440); RED BLOOD COUNT 3.32 X10'6 (4.70-6.10); RED CELL DISTRIBUTION WIDTH 15.9 % (11.5-14.5); WHITE BLOOD COUNT 5.3 X10'3 (4.5-11.0)
[2019-01-13 05:05] LABS: ALBUMIN 2.9 G/DL (3.4-5.0); ANION GAP 8 (8-16); BLOOD UREA NITROGEN 40 MG/DL (7-18); BUN/CREATININE RATIO 24.4 (5.4-32.0); CALCIUM 8.2 MG/DL (8.5-10.1); CHLORIDE 110 MMOL/L (99-107); CREATININE 1.64 MG/DL (0.60-1.10); GLUCOSE 143 MG/DL (70-104); POTASSIUM 3.1 MMOL/L (3.5-5.1); SODIUM 147 MMOL/L (135-145); TOTAL CARBON DIOXIDE 29.4 MMOL/L (24-32); eGFR 41 ML/MIN
[2019-01-13] MEDS ORDERED: potassium Cl 20 mEq SR tablet PO PRN ×2 (05:25→05:35)
[2019-01-13] MEDS ORDERED: potassium CL 10mEq/100ml bag 100 ML IV PRN (05:35)
[2019-01-13] MEDS: potassium Cl 20 mEq SR tablet PO PRN ×3 (05:46→14:07)
--- NOTE | 2019-01-13 05:52 | NUR ---
Dr. Jimenez notified r/t K+ 3.1 new order non cardiac K+ protocol noted. 1st dose of 20 MeQ PO administered
[2019-01-13 06:35] VITALS: BP 120/51
[2019-01-13] MEDS: metoprolol succinate 25mg (24-HOUR) SR. Tablet PO SCH ×2 (09:22→20:04)
[2019-01-13] MEDS: furosemide 20 MG/2 ML vial IV SCH (09:23)
[2019-01-13] MEDS: atorvastatin 20mg tablet PO SCH (09:23)
[2019-01-13] MEDS: pantoprazole 40mg Tablet.DR PO SCH ×2 (09:23→20:04)
--- NOTE | 2019-01-13 10:36 | NUR ---
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 Returned to heart healthy diet PO 75-100% meals meeting needs. LBM 01/12 receiving colace routine. No nutrition concerns at this time. Will continue to monitor. Rec: 1. continue heart healthy diet 2. wt per rx Addendum: 01/13/19 at [address] Amended: Links added.
[2019-01-13 11:00] VITALS: BP_SYST 115; BP_SYST 117; BP_DIAS 55; BP_DIAS 62
[2019-01-13 15:00] VITALS: BP 117/62
[2019-01-13 18:00] VITALS: BP 127/72
--- NOTE | 2019-01-13 18:15 | NUR ---
Patient in room MED 312. I have received report from Luisana Sanchez RN and had the opportunity to ask questions and assume patient care.
--- NOTE | 2019-01-13 18:36 | NUR ---
Problems reprioritized. Patient report given, questions answered & plan of care reviewed with []. Addendum: 01/13/19 at 1837 by Shayna Chou RN Amended: Links added.
[2019-01-13] MEDS: tamsulosin 0.4mg capsule PO SCH (20:04)
[2019-01-13 22:00] VITALS: BP 124/64
[2019-01-14 02:00] VITALS: BP 105/54
[2019-01-14 05:29] LABS: POTASSIUM 3.9 MMOL/L (3.5-5.1)
[2019-01-14 06:00] VITALS: BP 111/67
--- NOTE | 2019-01-14 06:15 | NUR ---
Problems reprioritized. Patient report given, questions answered & plan of care reviewed with MARIELLA Chawla.
[2019-01-14 06:16] LABS: BASOPHILS % (AUTO) 0.5 % (0-1); EOSINOPHILS # (AUTO) 0.1 X10'3 (0-0.9); EOSINOPHILS % (AUTO) 2.5 % (0-6); HEMATOCRIT 26.6 % (42.0-52.0); HEMOGLOBIN 8.9 g/dl (14.0-17.9); LYMPHOCYTES # (AUTO) 0.6 X10'3 (1.1-4.8); LYMPHOCYTES % (AUTO) 15.5 % (21-51); MEAN CORPUSCULAR HEMOGLOBIN 28.6 PG (27.0-31.0); MEAN CORPUSCULAR HGB CONC 33.5 g/dL (33.0-36.5); MEAN CORPUSCULAR VOLUME 85.3 FL (78-98); MEAN PLATELET VOLUME 9.2 FL (7.4-10.4); MONOCYTES # (AUTO) 0.3 X10'3 (0-0.9); NEUTROPHILS # (AUTO) 3.1 X10'3 (1.8-7.7); NEUTROPHILS % (AUTO) 73.5 % (42-75); PLATELET COUNT 87 X10'3 (140-440); RED BLOOD COUNT 3.12 X10'6 (4.70-6.10); RED CELL DISTRIBUTION WIDTH 16.3 % (11.5-14.5); WHITE BLOOD COUNT 4.2 X10'3 (4.5-11.0)
[2019-01-14 06:33] LABS: ALBUMIN 2.7 G/DL (3.4-5.0); ANION GAP 8 (8-16); BLOOD UREA NITROGEN 34 MG/DL (7-18); BUN/CREATININE RATIO 21.8 (5.4-32.0); CALCIUM 8.3 MG/DL (8.5-10.1); CHLORIDE 110 MMOL/L (99-107); CREATININE 1.56 MG/DL (0.60-1.10); GLUCOSE 120 MG/DL (70-104); SODIUM 145 MMOL/L (135-145); TOTAL CARBON DIOXIDE 27.5 MMOL/L (24-32); eGFR 43 ML/MIN
--- NOTE | 2019-01-14 06:45 | NUR ---
Patient in room MED 312. I have received report from MARIELLA Rockwell and had the opportunity to ask questions and assume patient care.
[2019-01-14 07:18] LABS: ANISOCYTOSIS 1+; LARGE PLATELETS FEW; PLATELET ESTIMATE DECREASED
[2019-01-14 07:20] LABS: POLYCHROMASIA FEW
[2019-01-14] MEDS: pantoprazole 40mg Tablet.DR PO SCH (07:49)
[2019-01-14] MEDS: atorvastatin 20mg tablet PO SCH (07:49)
[2019-01-14] MEDS ORDERED: PANT40TA4 PO (07:50)
[2019-01-14] MEDS ORDERED: FURO-150 PO (07:50)
[2019-01-14] MEDS ORDERED: METO-395 PO (07:50)
[2019-01-14] MEDS ORDERED: ATOR20TA66 PO (07:50)
[2019-01-14] MEDS: metoprolol succinate 25mg (24-HOUR) SR. Tablet PO SCH (07:50)
[2019-01-14] MEDS: furosemide 20 MG/2 ML vial IV SCH (07:51)
--- NOTE | 2019-01-14 10:11 | NUR ---
Pt's new medications called into [facility] in [place].
--- NOTE | 2019-01-14 10:32 | NUR ---
pt. d/c from facility at 1020. pt. was wheeled to lobby by staff and was taken by a friend in a private vehicle. pt. discharge paperwork was explained, understood and signed. pt. IV was d/c intact. pt. left with all belongings. new medications were called into [facility] in [place] and paper script sent with pt.
--- NOTE | 2019-01-14 10:46 | NUR ---
Orienteer documentation: I have reviewed and agree with all interventions, assessments performed and documented by Juanis WOLFF.
== END 2019-01-14 10:46 | disposition home or self-care (01) | DRG 280 ==
LOC: ER 12:51 → MED 3N 15:48 → CICU 2S 18:51 → MED 3N 01-09 19:41
PROVIDERS: ADMIT Internal Medicine; ATTEND Internal Medicine
PROC: 4A023N7 Measurement of Cardiac Sampling and Pressure, Left Heart, Percutaneous Approach (ICD-10-PCS; principal; 2019-01-08)
PROC: B2151ZZ Fluoroscopy of Left Heart using Low Osmolar Contrast (ICD-10-PCS; 2019-01-08)
PROC: B2111ZZ Fluoroscopy of Multiple Coronary Arteries using Low Osmolar Contrast (ICD-10-PCS; 2019-01-08)
PROC: 0D568ZZ Destruction of Stomach, Via Natural or Artificial Opening Endoscopic (ICD-10-PCS; 2019-01-11)
PROC: 30233N1 Transfusion of Nonautologous Red Blood Cells into Peripheral Vein, Percutaneous Approach (ICD-10-PCS; 2019-01-11)
DX: I21.4 Non-ST elevation (NSTEMI) myocardial infarction (principal); I50.21 Acute systolic (congestive) heart failure; K55.21 Angiodysplasia of colon with hemorrhage; N17.0 Acute kidney failure with tubular necrosis; I48.1 Persistent atrial fibrillation; I13.0 Hypertensive heart and chronic kidney disease with heart failure and stage 1 through stage 4 chronic kidney disease, or unspecified chronic kidney disease; D62 Acute posthemorrhagic anemia; E78.5 Hyperlipidemia, unspecified; J44.9 Chronic obstructive pulmonary disease, unspecified; N40.0 Benign prostatic hyperplasia without lower urinary tract symptoms; N18.3 Chronic kidney disease, stage 3 (moderate); D69.6 Thrombocytopenia, unspecified; I25.10 Atherosclerotic heart disease of native coronary artery without angina pectoris; I48.2 Chronic atrial fibrillation; Z87.891 Personal history of nicotine dependence; Z88.6 Allergy status to analgesic agent; Z82.49 Family history of ischemic heart disease and other diseases of the circulatory system; Z79.899 Other long term (current) drug therapy
CPT/HCPCS: 36415; 43227; 71045; 80048; 80053; 80061; 82271; 82272; 82948; 83735; 83880; 84484; 85025; 85027; 85347; 85610; 85730; 86885; 86900; 86901; 86920; 87081; 93005; 93306; 93458; 94760; 97110; 97112; 97116; 97161; 97530; 99152; 99153; 99285; A4620; A6258; C1769; C1894; C9113; G0378; J0360; J1644; J1940; J2001; J2250; J2270; J3010; J3246; J3490; J7030; J7040; P9016; Q9967